=== PATIENT | female | born 1960 | race African-American/Black ===

== ENCOUNTER 2023-09-10 11:37 | Outpatient (CLI) | payer MEDICARE | END 2023-09-10 11:38 | disposition home or self-care (01) | LOC: SCSMRI 11:37 | PROVIDERS: ATTEND Neurological Surgery | DX: G95.9 Disease of spinal cord, unspecified (principal); R90.82 White matter disease, unspecified | CPT/HCPCS: 70553; 72142; 72157; 72158; 82565 ==